=== PATIENT | female | born 1985 | race Hispanic/Latino ===

== ENCOUNTER 2021-12-21 02:58 | Emergency (ER) | payer SELFPAY ==
[2021-12-21] MEDS ORDERED: Sodium Chloride 0.9% 1,000 ML ONE (03:16)
[2021-12-21] MEDS ORDERED: KETAMINE 100 MG/ML (5ML VIAL) ONE (03:16)
[2021-12-21 03:22] LABS: INR-International Normal Ratio 0.9; Prothrombin Time 12.7 sec (12.0-14.7)
[2021-12-21 03:23] LABS: PTT 25.3 sec (22.9-36.1)
[2021-12-21 03:26] LABS: BHCG - Serum Negative (NEGATIVE); Pregs Control Bar Appear? YES (CONTROL BAR)
[2021-12-21 03:30] LABS: #Basophils 0.1 thou/uL (0.0-0.2); #Lymphocytes 3.7 thou/uL (1.20-3.40); #Monocytes 0.6 thou/uL (0.11-0.59); #Neutrophils 2.8 thou/uL (1.40-6.50); %Basophils 1.5 % (0.0-1.0); %Eosinophils 0.4 % (0.0-10.0); %Lymphocytes 51.4 % (21.0-51.0); %Monocytes 8.6 % (0.0-10.0); %Neutrophils 38.1 % (42.0-75.0); ALT (SGPT) 18 U/L (8-55); AST (SGOT) 19 U/L (5-34); Albumin 4.9 g/dL (3.5-5.0); Alkaline Phosphatase 71 U/L (40-110); Anion Gap 17 mmol/L (10-20); BUN (Urea Nitrogen) 4 mg/dL (7.0-18.7); Bilirubin, Total 0.2 mg/dL (0.2-1.2); Calc. Creatinine Clearance 0 mL/min (70-130); Calcium 9.7 mg/dL (7.8-10.44); Carbon Dioxide 20 mmol/L (22-29); Chloride 110 mmol/L (98-107); Estimated GFR 99; Glucose 81 mg/dL (70-105); Hemoglobin 13.5 g/dL (12.0-16.0); Mean Corpuscular HGB CONC 31.6 g/dL (32.0-36.0); Mean Corpuscular Hemoglobin 29.8 pg (27.0-31.0); Mean Corpuscular Volume 94.3 fL (78.0-98.0); Mean Platelet Volume 6.4 fL (7.4-10.4); Platelet Count 379 thou/uL (130-400); Potassium 3.4 mmol/L (3.5-5.1); Protein, Total 7.9 g/dL (6.0-8.3); Red Blood Cell (RBC) Count 4.55 mill/uL (4.20-5.40); Sodium 144 mmol/L (136-145); White Blood Cell (WBC) Count 7.3 thou/uL (4.8-10.8)
[2021-12-21 03:31] LABS: Acetaminophen Less than 10.0 mcg/mL (10.0-30.0); Alcohol 75 mg/dL (Less than 10); CK (CPK) 102 U/L (29-168); Salicylate Less than 8.0 mg/dL (15.0-30.0)
[2021-12-21] MEDS ORDERED: Ketorolac Tromethamine 30 MG/ML VIAL ONE (03:56)
[2021-12-21] MEDS ORDERED: Fentanyl 100 MCG/2 ML VIAL ONE (04:19)
[2021-12-21 05:12] LABS: SARS-CoV-2 NAA Rapid Test Not Detected (NotDetected)
== END 2021-12-21 04:48 | disposition short-term general hospital (02) ==
LOC: NAV ERS 02:58
DX: S82.852A Displaced trimalleolar fracture of left lower leg, initial encounter for closed fracture (principal); S93.05XA Dislocation of left ankle joint, initial encounter; Z20.822 Contact with and (suspected) exposure to COVID-19; W10.9XXA Fall (on) (from) unspecified stairs and steps, initial encounter
CPT/HCPCS: 27840; 36415; 70450; 72125; 80053; 80307; 82550; 84703; 85025; 85610; 85730; 96374; 96375; 99152; J1885; J3010; J7050; U0002

== ENCOUNTER 2021-12-27 19:13 | Emergency (ER) | payer SELFPAY ==
[2021-12-27] MEDS ORDERED: Sodium Chloride 0.9% 1,000 ML ONE (19:41)
[2021-12-27] MEDS ORDERED: Cefepime 2 GM VIAL ONE (19:41)
[2021-12-27] MEDS ORDERED: Morphine 4 MG/ML VIAL ONE (19:41)
[2021-12-27] MEDS ORDERED: Sodium Chloride 0.9% 100 ML ONE (19:41)
[2021-12-27 19:53] LABS: #Basophils 0.1 thou/uL (0.0-0.2); #Lymphocytes 1.7 thou/uL (1.20-3.40); #Monocytes 0.7 thou/uL (0.11-0.59); #Neutrophils 5.3 thou/uL (1.40-6.50); %Basophils 0.9 % (0.0-1.0); %Eosinophils 0.5 % (0.0-10.0); %Lymphocytes 22.1 % (21.0-51.0); %Monocytes 8.5 % (0.0-10.0); Hemoglobin 12.5 g/dL (12.0-16.0); Mean Corpuscular HGB CONC 30.8 g/dL (32.0-36.0); Mean Corpuscular Hemoglobin 29.7 pg (27.0-31.0); Mean Corpuscular Volume 96.4 fL (78.0-98.0); Mean Platelet Volume 6.1 fL (7.4-10.4); Platelet Count 419 thou/uL (130-400); RBC Distribution Width 12.2 % (11.5-14.5); Red Blood Cell (RBC) Count 4.22 mill/uL (4.20-5.40); White Blood Cell (WBC) Count 7.8 thou/uL (4.8-10.8)
[2021-12-27 20:06] LABS: Anion Gap 17 mmol/L (10-20); BUN (Urea Nitrogen) 10 mg/dL (7.0-18.7); Calc. Creatinine Clearance 0 mL/min (70-130); Calcium 9.7 mg/dL (7.8-10.44); Carbon Dioxide 22 mmol/L (22-29); Chloride 104 mmol/L (98-107); Estimated GFR 104; Glucose 106 mg/dL (70-105); Potassium 4.3 mmol/L (3.5-5.1); Sodium 139 mmol/L (136-145)
[2021-12-27] MEDS ORDERED: Sodium Chloride 0.9% 500 ML ONE (20:13)
[2021-12-27] MEDS ORDERED: Vancomycin HCl 500 MG VIAL ONE (20:13)
== END 2021-12-27 22:10 | disposition short-term general hospital (02) ==
LOC: NAV ERS 19:13
DX: I82.462 Acute embolism and thrombosis of left calf muscular vein (principal)
CPT/HCPCS: 36415; 80048; 83605; 85025; 87040; 94760; 96365; 96366; 96367; 96375; J0692; J2270; J3370; J3490; J7030; J7050